=== PATIENT | female | born 1970 | race Caucasian/White ===

== ENCOUNTER → 2020-11-13 | Outpatient (CLI) | payer BC, OTHER | LOC: KOH-I 08:57 | DX: S92.192A Other fracture of left talus, initial encounter for closed fracture (principal); X58.XXXA Exposure to other specified factors, initial encounter | CPT/HCPCS: 73610 ==

== ENCOUNTER → 2021-05-27 | Outpatient (CLI) | payer BC, OTHER | LOC: US 08:53 | DX: D44.0 Neoplasm of uncertain behavior of thyroid gland (principal) ==

== ENCOUNTER → 2021-06-24 | Outpatient (CLI) | payer BC, OTHER | LOC: RAD 05-30 08:00 | DX: R13.10 Dysphagia, unspecified (principal) | CPT/HCPCS: 74220 ==

== ENCOUNTER → 2022-01-21 | Outpatient (CLI) | payer OTHER | LOC: RAD 12-20 08:30 | DX: K95.09 Other complications of gastric band procedure (principal) | CPT/HCPCS: 74221 ==